=== PATIENT | female | born 1970 | race Caucasian/White ===

== ENCOUNTER 2017-01-07 22:25 | Emergency (ER) | payer MEDICARE ==
[~2017-01-07] VITALS: Ht 172.7 cm; Wt 101.2 kg
[~2017-01-07 22:25] MED LIST: ABILIFY10 M1 PO; AMOX/K CLAV875 M1 PO; AMOXICILLIN500 MG PO; FLOXIN OTIC0.3 % OT; LEVOTHYROXIN75 MCG PO; LORTAB 10-325 M1 TAB PO; MUCINEX D1 TAB PO; PROZAC10 MG PO
[2017-01-07 23:55] LABS: URINE BILIRUBIN - DIPSTICK NEGATIVE (NEGATIVE); URINE BLOOD DIPSTICK SMALL (NEGATIVE); URINE CLARITY TURBID; URINE COLOR YELLOW; URINE GLUCOSE - DIPSTICK NEGATIVE (NEGATIVE); URINE KETONE TRACE mg/dL (NEGATIVE); URINE NITRITE - DIPSTICK NEGATIVE (Negative); URINE PH 5.5 (4.5-8.0); URINE PROTEIN - DIPSTICK NEGATIVE (NEG-TRACE); URINE SPECIFIC GRAVITY >=1.030; URINE UROBILINOGEN - DIPSTICK 0.2 E.U./dL (0.2)
[2017-01-07 23:57] LABS: URINE LEUK ESTERASE MODERATE (NEGATIVE)
[2017-01-08 00:01] LABS: URINE BACTERIA FEW hpf; URINE CALCIUM OXALATE CRYSTALS MODERATE lpf; URINE MUCUS FEW hpf (NONE-FEW); URINE SQUAMOUS EPITHELIAL CELL MANY EPI/hpf (0-FEW); URINE WBC 50-100 WBC/hpf (0-5)
[2017-01-08 00:02] LABS: HCG SERUM/URINE (NEG/POS) NEGATIVE (NEGATIVE)
[2017-01-08] MEDS ORDERED: METRONIDAZOL500 MG PO (02:17)
[2017-01-08] MEDS ORDERED: CIPROFLOXACN500 MG PO (02:17)
[2017-01-08 03:13] VITALS: BP 110/72
== END 2017-01-08 03:13 | disposition home or self-care (01) ==
LOC: ED 22:25
PROVIDERS: Emergency Medicine
DX: N89.8 Other specified noninflammatory disorders of vagina (principal); N39.0 Urinary tract infection, site not specified; F31.9 Bipolar disorder, unspecified; E03.9 Hypothyroidism, unspecified; F17.210 Nicotine dependence, cigarettes, uncomplicated

== ENCOUNTER 2020-10-22 02:40 | Emergency (ER) | payer MEDICARE ==
[~2020-10-22] VITALS: Ht 172.7 cm; Wt 90.0 kg
[~2020-10-22 02:40] MED LIST changes: +CIPROFLOXACN500 MG PO; +METRONIDAZOL500 MG PO
[2020-10-22 07:09] VITALS: BP 119/59
== END 2020-10-22 07:18 | disposition home or self-care (01) ==
LOC: ED 02:40 → ED-I 03:40 → ED 07:18
DX: T40.411A Poisoning by fentanyl or fentanyl analogs, accidental (unintentional), initial encounter (principal); F32.9 Major depressive disorder, single episode, unspecified; F17.200 Nicotine dependence, unspecified, uncomplicated; Y92.009 Unspecified place in unspecified non-institutional (private) residence as the place of occurrence of the external cause; Z20.822 Contact with and (suspected) exposure to COVID-19

== ENCOUNTER 2023-05-08 14:00 | Emergency (ER) | payer SELFPAY ==
[~2023-05-08] VITALS: Ht 172.7 cm; Wt 90.7 kg
[2023-05-08 14:11] VITALS: BP 115/86
[2023-05-08] MEDS ORDERED: PREDNISONE50 MG PO (14:12)
[2023-05-08] MEDS ORDERED: ALL DAY10 MG PO (14:12)
[2023-05-08] MEDS ORDERED: AMOX/K CLAV875 M1 PO (14:12)
[2023-05-08 14:15] VITALS: BP 122/85
[2023-05-08 14:30] VITALS: BP 120/81
[2023-05-08 14:45] VITALS: BP 130/91
[2023-05-08 14:54] VITALS: BP 130/91
== END 2023-05-08 15:04 | disposition home or self-care (01) | DRG 603 ==
LOC: ED 14:00
DX: L03.211 Cellulitis of face (principal); F20.9 Schizophrenia, unspecified; F41.9 Anxiety disorder, unspecified; F31.9 Bipolar disorder, unspecified; F15.10 Other stimulant abuse, uncomplicated; F17.200 Nicotine dependence, unspecified, uncomplicated

== ENCOUNTER 2023-05-12 11:38 | Emergency (ER) | payer SELFPAY ==
[2023-05-12] VITALS (11 sets, daily range): BP systolic 112–129; BP diastolic 67–89
[~2023-05-12] VITALS: Ht 172.7 cm; Wt 90.0 kg
[~2023-05-12 11:38] MED LIST changes: +ALL DAY10 MG PO; +PREDNISONE50 MG PO
[2023-05-12] MEDS ORDERED: BENADRYL25 M1 PO (13:58)
[2023-05-12] MEDS ORDERED: MOTRIN800 MG PO (13:58)
== END 2023-05-12 14:45 | disposition home or self-care (01) | DRG 159 ==
LOC: ED 11:38
DX: K08.89 Other specified disorders of teeth and supporting structures (principal); F19.10 Other psychoactive substance abuse, uncomplicated; F32.A Depression, unspecified; F17.200 Nicotine dependence, unspecified, uncomplicated